=== PATIENT | female | born 1970 | race African-American/Black ===

== ENCOUNTER → 2017-03-05 05:40 | Emergency (ER) | payer OTHER ==
[2017-03-05 04:24] LABS: URINE APPEARANCE CLOUDY; URINE BILIRUBIN NEG (NEG); URINE BLOOD NEG (NEG); URINE COLOR YELLOW; URINE GLUCOSE NEG (NEG); URINE KETONE TRACE (NEG); URINE LEUKOCYTE ESTERASE 3+ (NEG); URINE NITRATE NEG (NEG); URINE PROTEIN NEG (NEG); URINE SPECIFIC GRAVITY 1.032 (1.003-1.035)
[2017-03-05 04:27] LABS: CULTURE INDICATED? YES; URINE BACTERIA AUWI NEG (NEGATIVE); URINE SQUAMOUS EPITHELIAL CELL MOD /[HPF]; UWBCS1 AUWI 100-200 (0-5)
[2017-03-05 04:38] LABS: URINE MUCUS PRESENT
[~2017-03-05 05:40] MED LIST: ACETAMINOPHEN PO; CALCIUM + D 6001 TA1 PO; PRENATAL1 TA1 PO; VIT B-12 PO
[2017-03-08 11:39] LABS: CHLAMYDIA TRACH Not Detected (Not Detected); N GONOR Not Detected (Not Detected)
== END | disposition home or self-care (01) ==
LOC: CED 05:40
PROVIDERS: Nurse Practitioner Family
DX: A59.09 Other urogenital trichomoniasis (principal); Z98.51 Tubal ligation status; Z79.899 Other long term (current) drug therapy
CPT/HCPCS: 81003; 84703; 87086; 87491; 87591; 87808; 87905; 96372; 99284; J0696

== ENCOUNTER 2017-03-12 09:25 | Emergency (ER) | payer OTHER ==
[2017-03-12 10:29] LABS: URINE SOURCE CLEAN CATCH
[2017-03-12 11:05] LABS: URINE APPEARANCE CLEAR; URINE BACTERIA AUWI NEG (NEGATIVE); URINE BILIRUBIN NEG (NEG); URINE BLOOD NEG (NEG); URINE COLOR DK YELLOW; URINE GLUCOSE NEG (NEG); URINE KETONE TRACE (NEG); URINE LEUKOCYTE ESTERASE TRACE (NEG); URINE NITRATE NEG (NEG); URINE PROTEIN NEG (NEG); URINE SQUAMOUS EPITHELIAL CELL OCC /[HPF]; UWBCS1 AUWI 0-2 (0-5)
[2017-03-12 11:08] LABS: CULTURE INDICATED? NO
[2017-03-16 02:19] LABS: CHLAMYDIA TRACH Not Detected (Not Detected); N GONOR Not Detected (Not Detected)
== END 2017-03-12 11:09 | disposition home or self-care (01) ==
LOC: CED 09:25 → CFTX 09:25
PROVIDERS: Nurse Practitioner
DX: B37.3 Candidiasis of vulva and vagina (principal); Z98.51 Tubal ligation status
CPT/HCPCS: 81003; 87210; 87491; 87591; 87808; 87905; 99284